=== PATIENT | male | born 1995 | race Caucasian/White ===

== ENCOUNTER 2020-04-15 18:22 | Emergency (ER) | payer SELFPAY ==
[2020-04-15 18:26] VITALS: BP 152/95; PULSE 115; RESP 18; TEMP 36.6; O2SAT 95; BMI 25.7
--- NOTE | 2020-04-15 18:35 | ED_ITS ---
HPI - Wound/Laceration General: Chief Complaint: Wound/Laceration Stated Complaint: R FINGER LACERATION Time Seen by Provider: 04/15/20 18:32 History of Present Illness: HPI narrative: Patient cut right index finger with a box knife a little while ago bleeding controlled has good range of motion finger Onset (ago): minute(s) Place: home Patient tetanus UTD: No Context: accidental Associated symptoms: Reports no associated symptoms; Denies chills or fever(s) Treatments prior to arrival: bandage Review of Systems Const: Denies: fever(s) or chills Skin/Breast: Reports: other (Laceration right index finger) Psych: Denies: anxiety or depression Physical Exam Const: COMMON NORMALS: no acute distress Extremity: RIGHT UPPER EXTREMITY: Yes hand & digits (Laceration to MIP joint area about a 1 inch laceration no active bleeding d) Psych: COMMON NORMALS: mental status grossly normal Procedures Laceration Laceration 1: Site: hand Side (If applicable): right Size (cm): 4 Description: linear Depth: simple, single layer Local Anesthetic: lidocaine 1% Amount of anesthesia used (mL): 3 Pre-repair: wound explored and irrigated extensively Size (cm): 4-0 Number of sutures: 3 Technique: simple, interrupted Course Vital Signs: Vital signs: Vital Signs Temperature 97.9 F 04/15/20 18:26 Pulse Rate 115 H 04/15/20 18:26 Respiratory Rate 18 04/15/20 18:26 Blood Pressure 152/95 04/15/20 18:26 Pulse Oximetry 95 04/15/20 18:26 Coding Level of Care Code 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
[2020-04-15] MEDS: tetanus-dipt-pertussis 0.5 mL SDV IM (19:02)
[2020-04-15] MEDS: lidocaine 1% INJ 20 mL 5 ML INTRADERMA (19:04)
== END 2020-04-15 19:05 | disposition home or self-care (01) ==
PROVIDERS: Emergency Provider Nurse Practitioner Family
DX: S61.210A Laceration without foreign body of right index finger without damage to nail, initial encounter (principal); W26.0XXA Contact with knife, initial encounter; Z23 Encounter for immunization
CPT/HCPCS: 12002; 12345; 90471; 90715; 99281; 99283

== ENCOUNTER 2021-07-17 17:57 | Emergency (ER) | payer SELFPAY ==
[2021-07-17 18:02] VITALS: BP 146/72; PULSE 102; RESP 16; TEMP 37.1; O2SAT 96; BMI 25.7
--- NOTE | 2021-07-17 18:14 | W.ED.SKABFB ---
HPI - Skin/Abscess/Foreign Bdy General: Chief complaint: Skin/Abscess/Foreign Body Stated complaint: rash Time Seen by Provider: 07/17/21 18:14 History of Present Illness: 26-year-old male patient comes in today with rash to his forearms and face. Patient been working in some brush to 3 days ago and started breaking out in a rash over the last 24 hours. Patient appears in no acute distress. Respirations are even lungs are clear to auscultation. Review of Systems General: Reports: 10 or more systems reviewed and unremarkable except in HPI and below Skin/Breast: Reports: rash Physical Exam Const: COMMON NORMALS: alert HENMT: HEAD & SCALP: other (Vesicular weeping rash to the face mild swelling around the eyes) MOUTH: Normal oral and palatal mucosa present Neck/C-Spine: COMMON NORMALS: full ROM Resp: COMMON NORMALS: normal respiratory effort and clear to auscultation bilaterally AUSCULTATION: clear to auscultation bilaterally Cardio: COMMON NORMALS: regular rate and regular rhythm RATE: regular rate RHYTHM: regular rhythm Neuro: SENSORIUM/ORIENTATION: Yes alert Skin: RASHES: rashes noted (Vesicular rash with clustering in linear patterns and serous drainage) Course Vital Signs: Vital signs: Vital Signs Temperature 98.8 F 07/17/21 18:02 Pulse Rate 102 H 07/17/21 18:02 Respiratory Rate 16 07/17/21 18:02 Blood Pressure 146/72 07/17/21 18:02 Pulse Oximetry 96 07/17/21 18:02 MDM - Skin/Abscess/Foreign Bdy Medicial Decision Making Patient comes in for rash. No fevers noted. Rash appears to be in clusters of vesicular lesions with serous drainage and some linear patterns. Differential diagnosis includes contact dermatitis, rhus dermatitis, cellulitis. No sign of cellulitis. Patient will be treated for breast dermatitis/poison janette exposure. Recommended calamine lotion and Benadryl for discomfort. Triamcinolone cream for further treatment. A dose of triamcinolone was given IM due to the involvement of the face to avoid swelling around the eyes. Patient reported understanding agreed to plan. Discharge Plan Discharge Patient Disposition: Home Clinical Impression: Rhus dermatitis Condition: Stable Prescriptions: New triamcinolone acetonide 0.1 % cream 1 applic topical BID Qty: 80 0RF Discharge Orders: Discharge ED (Routine); Ordered 07/17/21 Ordered By: Monroe Alford Discharge Diet: Usual diet Discharge Activity: Increase activity as tolerated Patient Instructions: Murali Janette (ED) Activity Restrictions/Additional Instructions: Use triamcinolone cream 2 times a day to rash to the extremities and torso. You may use it once a day to your face. Use Benadryl and calamine lotion for comfort. Avoid extremely hot baths as this may aggravate the rash more. Drink plenty of water. Trim your nails in order to avoid scratching and causing infection. Monitor for fever and purulent drainage as these may be signs of infection. Follow-up with primary care as needed. Return to emergency department for new concerns. 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
[2021-07-17] MEDS: triamcinolone 40 mg/mL SDV 80 MG IM (18:48)
== END 2021-07-17 18:57 | disposition home or self-care (01) ==
PROVIDERS: Emergency Provider Nurse Practitioner Family
DX: L23.7 Allergic contact dermatitis due to plants, except food (principal)
CPT/HCPCS: 96372; 99283; J3301

== ENCOUNTER → 2022-07-07 08:21 | Outpatient (BNVA) | payer MEDICAID, SELFPAY | PROVIDERS: Visit Provider Podiatrist Foot & Ankle Surgery | DX: L60.0 Ingrowing nail (principal); L60.3 Nail dystrophy; L60.2 Onychogryphosis | CPT/HCPCS: 99213 ==

== ENCOUNTER 2023-03-21 10:52 | Emergency (ER) | payer MEDICAID, SELFPAY ==
[2023-03-21 11:23] VITALS: BP 145/85; PULSE 70; RESP 17; TEMP 37; O2SAT 97; BMI 26.4
--- NOTE | 2023-03-21 11:32 | W.ED.DENTAL ---
HPI - Dental/Oral General: Chief complaint: Dental/Oral Stated complaint: mouth pain Time Seen by Provider: 03/21/23 10:53 Source: patient Mode of arrival: ambulatory Limitations: no limitations History of Present Illness: 28-year-old male states he been having right upper dental pain over the last 3 weeks he states that he is scheduled to see a dentist but its not for a couple weeks. He states the pain is sharp in nature rates it a 5 out of 10 denies any fevers he has no trismus denies any worsening improving factors. Associated symptoms: Denies fever(s) Review of Systems Const: Denies: fever(s) or chills ENMT: Reports: dental pain; Denies: throat pain Card: Denies: chest pain Resp: Denies: dyspnea GI: Denies: abdominal pain, nausea, vomiting or diarrhea Musc: Denies: neck pain or back pain Skin/Breast: Denies: rash Neuro: Denies: headache(s) Physical Exam Const: COMMON NORMALS: no acute distress and patient oriented x3 HENMT: COMMON NORMALS: normocephalic and atraumatic HEAD & SCALP: normocephalic and atraumatic OTHER: Poor dentition tenderness of her right upper molar no trismus no abscess Neck/C-Spine: COMMON NORMALS: supple Chest: COMMONS NORMALS: normal inspection of the chest Resp: COMMON NORMALS: normal respiratory effort Extremity: COMMON NORMALS: normal to inspection Neuro: COMMON NORMALS: patient oriented x3 Psych: COMMON NORMALS: mental status grossly normal Course Vital Signs: Vital signs: Vital Signs Temperature 98.6 F 03/21/23 11:23 Pulse Rate 70 03/21/23 11:23 Respiratory Rate 17 03/21/23 11:23 Blood Pressure 145/85 03/21/23 11:23 Pulse Oximetry 97 03/21/23 11:23 Oxygen Delivery Me thod Room Air 03/21/23 11:23 MDM - Dental/Oral Medical Decision Making Patient presents with dental pain he has no trismus no abscess well-appearing here we will place him on antibiotics he is to follow-up with dentist return if worsening. Medical Records I reviewed the patient's medical records. 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
[2023-03-21] MEDS: HYDROcodone-acetaminophen 5-325 mg Tablet 1 TAB PO (11:38)
== END 2023-03-21 11:41 | disposition home or self-care (01) ==
PROVIDERS: Emergency Provider Emergency Medicine
DX: K08.89 Other specified disorders of teeth and supporting structures (principal)
CPT/HCPCS: 99283

== ENCOUNTER 2025-01-13 13:10 | Outpatient (CLI) | payer MEDICAID, SELFPAY ==
--- NOTE | 2025-01-13 13:24 | XR_ITS ---
WS: [id number] Left shoulder, 2 views, 01/13/2025 Clinical Data: M25.511 - Pain in Left shoulder Comparison: None. Findings: No fractures or dislocations are seen. The AC joint is normal. The adjacent left clavicle, left scapula and ribs are normal. The soft tissues are unremarkable. XR/XR shoulder LT min 2V* [id number] Impression: Negative left shoulder.
== END 2025-01-13 13:11 | disposition home or self-care (01) ==
PROVIDERS: PCP Clinical Nurse Specialist Adult Health; Visit Provider Clinical Nurse Specialist Adult Health
DX: M25.512 Pain in left shoulder (principal)
CPT/HCPCS: 73030

== ENCOUNTER 2025-02-06 11:12 | Outpatient (CLI) | payer MEDICAID, SELFPAY ==
[2025-02-06 12:51] LABS: Hematocrit 41.4 % (37-53); Hemoglobin 14.50 g/dL (11.27-16.99); Mean Corpuscular HGB Conc 35.0 g/dL (30-55); Mean Corpuscular Hemoglobin 32.3 pg (27-33); Mean Corpuscular Volume 92.2 fl (82-101); Nucleated Red Blood Cells % 0 %; Platelet Count 286 10^3/cmm (157-399); Red Blood Count 4.49 10^6/uL (3.85-5.65); White Blood Count 4.46 10^3/uL (3.29-11.43)
[2025-02-06 13:25] LABS: Alanine Aminotransferase 17 U/L (0-41); Albumin Level 4.4 g/dL (3.5-5.2); Alkaline Phosphatase 58 U/L (40-130); Anion Gap 17.2 (5-19); Aspartate Amino Transferase 13 U/L (0-40); Blood Urea Nitrogen 11 mg/dL (6-20); Calcium 9.0 mg/dL (8.5-10.5); Carbon Dioxide 24 mmol/L (22-29); Chloride 103 mmol/L (98-107); Free T4 Free Thyroxine 1.31 ng/dL (0.82-1.77); Globulin 2.5 g/dL (1.3-4.6); Glucose 99 mg/dL (65-115); Osmolality Calculated 289 mOsm/kg (285-295); Potassium 4.2 mmol/L (3.5-5.1); Sodium 140 mmol/L (136-145); Thyroid Stimulating Hormone 0.38 uIU/mL (0.27-4.20); Total Protein 6.9 g/dL (6.6-8.7)
== END 2025-02-06 11:13 | disposition home or self-care (01) ==
LOC: LAB 11:15
PROVIDERS: PCP Clinical Nurse Specialist Adult Health; Visit Provider Nurse Practitioner Family
DX: L74.512 Primary focal hyperhidrosis, palms (principal)
CPT/HCPCS: 36415; 80053; 84439; 84443; 85025